=== PATIENT | male | born 2000 | race Caucasian/White ===

== ENCOUNTER → 2023-04-17 17:38 | Outpatient (REF) | payer BC, OTHER, SELFPAY | LOC: MRI 3T 17:38 | PROVIDERS: ATTENDING PHYSICIAN Neurological Surgery; FAMILY PHYSICIAN Family Medicine | DX: G93.9 Disorder of brain, unspecified (principal) | CPT/HCPCS: 70553; A9575 ==

== ENCOUNTER → 2023-10-14 07:56 | Outpatient (REF) | payer BC, OTHER, SELFPAY | LOC: HWRCS 07:56 | PROVIDERS: ATTENDING PHYSICIAN Internal Medicine Cardiovascular Disease; FAMILY PHYSICIAN Family Medicine | DX: R55 Syncope and collapse (principal) | CPT/HCPCS: 93306 ==